=== PATIENT | female | born 1945 | race Caucasian/White ===

== ENCOUNTER → 2017-02-18 | Outpatient (CLI) | payer OTHER | LOC: BMCIMAGING 14:26 | PROVIDERS: ATTEND Family Medicine | DX: Z12.31 Encounter for screening mammogram for malignant neoplasm of breast (principal) | CPT/HCPCS: G0202 ==

== ENCOUNTER 2017-07-22 07:54 | Day surgery (SDC) | payer OTHER ==
[2017-07-22] MEDS ORDERED: NS 500 ML IV ONE (08:02)
[2017-07-22] MEDS ORDERED: MIDAZOLAM 2 MG/2 ML VIAL IVP ONE (08:02)
[2017-07-22] MEDS ORDERED: BENZOCAINE UNIT DOSE SPRAY HURRICAINE MM ONE (08:02)
[2017-07-22] MEDS ORDERED: ATROPINE SULFATE 1 MG/10 ML SYR IVP ONE (08:02)
[2017-07-22] MEDS ORDERED: fentaNYL 100 MCG/2 ML INJ IVP ONE (08:02)
[2017-07-22] MEDS ORDERED: MIDAZOLAM 2 MG/2 ML VIAL ONE (09:02)
[2017-07-22] MEDS ORDERED: fentaNYL 100 MCG/2 ML INJ ONE (09:03)
--- NOTE | 2017-07-22 09:09 | PDHPUP ---
History & Physical Update H&P update statement: This history and physical update is based on an assessment of the patient which was completed after admission or registration (within 24 hours), but prior to the surgery/procedure. H&P update: H&P reviewed & patient examined, no change in patient's condition since H&P completed
--- NOTE | 2017-07-22 09:10 | PDPROPOC ---
Sedation Plan of Care Sedation Plan of Care: vital signs stable, mental status noted, patient educated of risks, benefits, alternatives, patient can tolerate sedation ASA Classification: ASA 2 Planned drugs: fentanyl, midazolam Mallampati Score: Class 1 Mallampati Reference Image: Patient passed 3-3-2 rule?: Yes
--- NOTE | 2017-07-22 15:45 | ECHO ---
[email or web address] [address] [address] Main: [phone] Fax: Transesophageal Echocardiography Name: LEVY MERCER MR#: [id number] Study Date: 07/22/2017 Study Time: 08:58 AM Date of : 1945 Age: 72 year(s) Height: ( ) Weight: ( ) BSA: Gender: Female Examination: EVIN Indication: Eval LA Image Quality: Contrast: Requested by: Arya Epps Heart Rate: Rhythm: BP: / Procedure Staff Publication Distributor: Emmanuel Norwood RDCS Reading Physician: Arya Epps Requesting Provider: EVIN Exam Details Conclusions: Cor triatriatum Measurements: Chambers Valvular Assessment AV/MV Valvular Assessment TV/PV Normal Normal Normal Name Value Range Name Value Range Name Value Range Additional Measurements: Findings: Left Ventricle: Normal global systolic LV function. Right Ventricle: Normal RV function. Left Atrium: There is a partial fibromuscular membrane band noted in the Left Atrium with horizontal orientation. A bubble exam was performed during the EVIN and there is no evidence of a PFO.. Left Atrial Appendage: Good color flow doppler in the left atrial appendage. Right Atrium: The right atrium is normal in size. Mitral Valve: The mitral valve is normal in appearance and function. Trivial mitral valve regurgitation. Patient: LEVY MERCER Study Date: 07/22/2017 Page 1 of 2 08:58 AM Aortic Valve: The aortic valve is tri-leaflet and functions normally. Tricuspid Valve: The tricuspid valve is normal in appearance and function. Pulmonic Valve: The pulmonic valve is normal in appearance and function. Aorta: The aorta is normal. Pericardium: No pericardial effusion. l1n (No Signature Object) Patient: LEVY MERCER Study Date: 07/22/2017 Page 2 of 2 08:58 AM [id number]
== END 2017-07-22 10:42 | disposition home or self-care (01) ==
LOC: FCATH 07:54
PROVIDERS: ATTEND Internal Medicine Interventional Cardiology
PROC: B246ZZ4 Ultrasonography of Right and Left Heart, Transesophageal (ICD-10-PCS; principal; 2017-07-22)
DX: Q24.2 Cor triatriatum (principal)
CPT/HCPCS: J2250; J3010